=== PATIENT | male | born 1965 | race Caucasian/White ===

== ENCOUNTER 2024-07-07 21:13 | Emergency (ER) | payer OTHER, SELFPAY ==
[2024-07-07 21:18] VITALS: BP 159/87
--- NOTE | 2024-07-07 21:49 | ED.GENMED ---
History of Present Illness
General
Chief Complaint: Fall
Time Seen by Provider: 07/07/24 21:33
History of Present Illness
History of Present Illness:
58-year-old male presents the emergency department for evaluation of multiple superficial abrasions to the back as well as the feet. He states he fell on a step to escalator earlier today, notes that he took many septa transfers from [place]
to get to [place] and as a result has blisters on his feet from walking. He arrives with several bags of luggage, states to me he was hoping to use the oral pool at the local [facility] 'as this would help prevent infections in my back' but he was
unsuccessful in this [facility]. He initially presented to [facility] for outpatient psychiatry referral as he feels he needs medications, was last medicated after hospital stay [facility] last year. Denies any suicidal or
homicidal ideation. Very tangential speech patterns
Past History
Past History
ED Past Medical History: HTN, Hypercholesterolemia, NIDDM, Psychiatric (Bipolar disorder) and Other (Asthma, diabetes)
ED Past Surgical History: None
Patient has exhibited threatening behavior?: No
Social History
Tobacco: Smoker
Alcohol: None (Sober since 2011)
Drug: Marijuana (Sober since 2011)
Personal: Single
Living: alone
Employment: Employed
Family History
Family History: Hypertension and Other (Mother with leukemia. Father with COPD hypertension and alcoholism); Negative Diabetes, Early CAD, Asthma or Cancer
Review of Systems
Review of Systems
Allergies reviewed?: Yes
All Other Systems: ROS reviewed and negative except as documented in HPI and ROS
Phy Exam
Physical Exam
Physical Exam:
GEN: Well appearing, NAD, WDWN
HEENT: Oral mucosa moist, no scleral icterus
Cardiac: Regular rate
Lung: No respiratory distress, no tachypnea
MSK: No gross deformity or injuries
Skin: Good color, no pallor or jaundice, numerous superficial abrasions across the back with no bleeding. Numerous develop blisters to bilateral feet with no signs of skin infection
Neuro: AO x3, moves all extremities freely
Psych: Rambling and tangential
Course
Orders/Labs/Results
Orders:
Orders
07/07/24 22:07
Bacitracin/Polymyxin B [Polysporin Ointment] See Dose Instructions TOPICAL NOW STA
07/07/24 22:21
Acetaminophen [Tylenol] 650 mg .ROUTE .STK-MED ONE
07/07/24 22:22
Acetaminophen [Tylenol] 650 mg PO NOW STA
Vital Signs
Initial and Last Documented VS:
Initial Vital Signs
Temp Pulse Resp BP Pulse Ox
99.1 F 70 20 159/87 97
07/07/24 21:18 07/07/24 21:18 07/07/24 21:18 07/07/24 21:18 07/07/24 21:18
Last Documented Vital Signs
Temp Pulse Resp BP Pulse Ox
99.1 F 70 20 159/87 97
07/07/24 21:18 07/07/24 21:18 07/07/24 21:18 07/07/24 21:18 07/07/24 21:18
MDM/Problems Addressed
MDM/Problems Addressed:
Discussed wound care with the patient. He is homeless and plans to seek crisis evaluation at [facility] after medical discharge. No indication for 302 and he does not desire inpatient hospitalization. Medically cleared for discharge
*Critical Care Note
Total Time (30-74mins, 75-104mins- exclusive of procedures): Not Applicable
ED Attending Note
-
Portions of this chart may have been created with voice recognition software.� Occasional wrong word or��sound alike� substitutions may have occurred due to the inherent limitations of voice recognition software.
Discharge Plan
Departure
Patient Disposition: Home (Routine Discharge)
Date of Disposition: 07/07/24
Time of Disposition: 21:49
Patient with high blood pressure during this ER visit?: No
Discharge Problem:
Abrasion of skin, Homeless
Instructions: Wound Care (DC), Skin Abrasions (DC)
Prescriptions:
No Action
No Current Medications
0
Interventions
Interventions:
*Risk Screen - Suicide Last Done: 07/07/24 21:18
*General Assessment Last Done: 07/07/24 21:18
*Neglect/Abuse Screening Last Done: 07/07/24 21:18
ED- Fall Risk Assessment Last Done: 07/07/24 21:18
*ED COVID-19 Vaccine History Last Done: 07/07/24 21:18
*Nursing Disposition Last Done: 07/07/24 22:29
ED-Musculoskeletal Assessment Last Done: 07/07/24 21:52
ED- Neurological Assessment Last Done: 07/07/24 21:52
ED-Skin Assessment Last Done: 07/07/24 21:52
Discharge Date and Time
Discharge Date/Time: 07/07/24 22:29
Print Language: MOROCCAN
[2024-07-07] MEDS: TYLENOL 650 MG PO (22:22)
[2024-07-07] MEDS: POLYSPORIN OINTMENT 1 APPLIC TOPICAL (22:23)
== END 2024-07-07 22:29 | disposition home or self-care (01) ==
LOC: EMR 21:13
PROVIDERS: EMERGENCY PHYSICIAN Emergency Medicine; FAMILY PHYSICIAN Family Medicine
DX: S20.419A Abrasion of unspecified back wall of thorax, initial encounter (principal); S90.822A Blister (nonthermal), left foot, initial encounter; S90.821A Blister (nonthermal), right foot, initial encounter; W10.0XXA Fall (on)(from) escalator, initial encounter; Z59.00 Homelessness unspecified; I10 Essential (primary) hypertension; E11.9 Type 2 diabetes mellitus without complications; E78.00 Pure hypercholesterolemia, unspecified; F31.9 Bipolar disorder, unspecified; J45.909 Unspecified asthma, uncomplicated; F17.200 Nicotine dependence, unspecified, uncomplicated
CPT/HCPCS: 99281

== ENCOUNTER 2024-07-08 02:47 | Emergency (ER) | payer OTHER, SELFPAY ==
[2024-07-08 03:05] VITALS: BP 130/88
--- NOTE | 2024-07-08 04:34 | ED.GENMED ---
History of Present Illness
General
Chief Complaint: Dehydration Symptoms
Source: patient
Time Seen by Provider: 07/08/24 04:34
Nursing documentation reviewed up to this point in time: agreed with
History of Present Illness
History of Present Illness:
58-year-old male presents the emergency department for signs and symptoms of dehydration. Patient was seen in the emergency department earlier today after falling down a step on the escalator. He did suffer some abrasions and had some blisters on
his feet. He was treated at that time and discharged. Patient then went to [facility] looking for an outpatient psychiatry referral. Patient was at [facility] recently and discharged. Was seen by [facility] and
discharged. Patient denies suicidal or homicidal ideation, intent or plan. Patient is homeless.
Past History
Past History
ED Past Medical History: HTN, Hypercholesterolemia, NIDDM, Psychiatric (Bipolar disorder) and Other (Asthma, diabetes)
ED Past Surgical History: None
Patient has exhibited threatening behavior?: No
Social History
Tobacco: Smoker
Alcohol: None (Sober since 2011)
Drug: Marijuana (Sober since 2011)
Personal: Single
Living: alone
Employment: Employed
Family History
Family History: Hypertension and Other (Mother with leukemia. Father with COPD hypertension and alcoholism); Negative Diabetes, Early CAD, Asthma or Cancer
Review of Systems
Review of Systems
Allergies reviewed?: Yes
All Other Systems: ROS reviewed and negative except as documented in HPI and ROS
Constitutional: Reports no symptoms
EENT: Reports no symptoms
Respiratory: Reports no symptoms
Cardiac: Reports no symptoms
ABD/GI: Reports no symptoms
: Reports no symptoms
Musculoskeletal: Reports no symptoms
Skin: Reports no symptoms
Neurological: Reports no symptoms
Endocrine: Reports no symptoms
Hematologic/Lymphatic: Reports no symptoms
Psychiatric: Reports depression and anxiety; Denies suicidal
Phy Exam
General Physical Exam
General Presentation: well appearing and no apparent distress
General age: appears stated age
General Skin: warm and dry
General Habitus: normal
General Mental: alert
Cardiovascular Exam
Cardiovascular Exam: regular rate/rhythm and no edema
Musculoskeletal Exam
Musculoskeletal Exam: full ROM
Skin Exam
Skin Exam: normal color, warm/dry and other (Wounds to feet which appear to be appropriately dressed)
Psychiatric Exam
Psychiatric Exam: agitated
Course
Orders/Labs/Results
Orders:
Orders
07/08/24 04:34
Ibuprofen [Motrin] 600 mg PO NOW STA
Vital Signs
Initial and Last Documented VS:
Initial Vital Signs
Pulse Resp BP Pulse Ox
75 18 130/88 96
07/08/24 03:05 07/08/24 03:05 07/08/24 03:05 07/08/24 03:05
Last Documented Vital Signs
Pulse Resp BP Pulse Ox
75 18 157/97 96
07/08/24 03:05 07/08/24 03:05 07/08/24 04:56 07/08/24 03:05
*Critical Care Note
Total Time (30-74mins, 75-104mins- exclusive of procedures): Not Applicable
ED Attending Note
-
Portions of this chart may have been created with voice recognition software.� Occasional wrong word or��sound alike� substitutions may have occurred due to the inherent limitations of voice recognition software.
Discharge Plan
Departure
Patient Disposition: Home (Routine Discharge)
Date of Disposition: 07/08/24
Time of Disposition: 04:38
Patient with high blood pressure during this ER visit?: Yes
Condition: Good
Discharge Problem:
Acute dehydration, Homeless
Instructions: Dehydration, Adult (DC), BLOOD PRESSURE
Prescriptions:
No Action
No Current Medications
0
Referrals:
Jesus Johnson MD [Family Provider] -
[facility] [Active] - As needed
Activity Restrictions/Additional Instructions:
It was a pleasure meeting you and taking part in your care. We hope for your continued healing and wellness.
Please read discharge instructions in their entirety. However, they are for general education and may not describe your exact diagnosis at discharge. Information on your ER visit and medical conditions were discussed with you along with appropriate
follow up information...
If indicated, please take your medications as instructed and indicated on discharge paperwork.
Please schedule a follow up appointment as directed. Call to schedule an appointment
Please return to the emergency department with ANY change in, persisting, or worsening of symptoms. If any of your symptoms do not improve, or persist, or become more severe within 6-12 hours, please return to the emergency department for further
care.
Please return to the emergency department if you develop a headache, neck pain/stiffness, fever greater than 100.4F, chest pain, shortness of breath, persistent nausea, vomiting, slurred speech, difficulty walking, numbness/tingling, weakness, signs
of infection or any other symptoms that are worrisome to you.
If you have any questions or concerns please do not hesitate to call the Hospital at
Interventions
Interventions:
*Risk Screen - Suicide Last Done: 07/08/24 04:54
*General Assessment Last Done: 07/08/24 04:54
*Neglect/Abuse Screening Last Done: 07/08/24 04:54
ED- Fall Risk Assessment Last Done: 07/08/24 04:54
*ED COVID-19 Vaccine History Last Done: 07/08/24 04:54
*Nursing Disposition Last Done: 07/08/24 04:54
ED- Cardiac Assessment Last Done: 07/08/24 04:54
ED- Neurological Assessment Last Done: 07/08/24 04:54
ED- Pulmonary Assessment Last Done: 07/08/24 04:54
Discharge Date and Time
Discharge Date/Time: 07/08/24 04:56
Print Language: DANISH
[2024-07-08] MEDS: MOTRIN 600 MG PO (04:37)
[2024-07-08 04:56] VITALS: BP 157/97
== END 2024-07-08 04:56 | disposition home or self-care (01) ==
LOC: EMR 02:47
PROVIDERS: EMERGENCY PHYSICIAN Student in an Organized Health Care Education/Training Program; FAMILY PHYSICIAN Family Medicine
DX: E86.0 Dehydration (principal); Z59.00 Homelessness unspecified; F17.200 Nicotine dependence, unspecified, uncomplicated; I10 Essential (primary) hypertension
CPT/HCPCS: 99283

== ENCOUNTER 2024-07-13 01:30 | Emergency (ER) | payer OTHER, SELFPAY ==
[2024-07-13 01:37] VITALS: BP 152/87
--- NOTE | 2024-07-13 02:13 | ED.GENMED ---
History of Present Illness
General
Chief Complaint: Musculo-Skeletal Complaint
Source: patient
Exam Limitations: none
Time Seen by Provider: 07/13/24 01:58
Nursing documentation reviewed up to this point in time: agreed with
History of Present Illness
History of Present Illness:
58-year-old male presents emergency department complaining of sore legs from walking, and blisters on his feet. He is worried about his blood sugar. He states he has not had anything to eat today. He ambulates into the emergency department
without difficulty.
Past History
Past History
ED Past Medical History: HTN, Hypercholesterolemia, NIDDM, Psychiatric (Bipolar disorder) and Other (Asthma, diabetes)
ED Past Surgical History: None
Patient has exhibited threatening behavior?: No
Social History
Tobacco: Smoker
Alcohol: None (Sober since 2011)
Drug: Marijuana (Sober since 2011)
Personal: Single
Living: alone
Employment: Employed
Family History
Family History: Hypertension and Other (Mother with leukemia. Father with COPD hypertension and alcoholism); Negative Diabetes, Early CAD, Asthma or Cancer
Review of Systems
Review of Systems
Allergies reviewed?: Yes
All Other Systems: Not applicable
Constitutional: Reports no symptoms
EENT: Reports no symptoms
Respiratory: Reports no symptoms
Cardiac: Reports no symptoms
ABD/GI: Reports no symptoms
: Reports no symptoms
Musculoskeletal: Reports muscle pain
Skin: Reports no symptoms
Neurological: Reports no symptoms
Endocrine: Reports no symptoms
Hematologic/Lymphatic: Reports no symptoms
Psychiatric: Reports no symptoms
Phy Exam
Physical Exam
Physical Exam:
Physical Exam
General: no apparent distress, not acutely ill
Neck: supple. no meningeal signs. normal posterior pharynx
Heart: s1/s2 regular rate and rhythm, no murmur. equal radial
pulses.
HEENT: Pupils equal round reactive to light, EOMI
Lungs: no acute respiratory distress. clear bilaterally
Abdomen: normal bowel sounds. not tender. no CVAT
Neuro: alert and oriented. no focal neurological deficits cranial nerves II through XII intact
Skin: no rash, healing tears on bilateral feet
Psychiatric: well kept. interactive and cooperative
Extremities: no edema. no calf tenderness. negative homans. good distal pulses
Course
Orders/Labs/Results
Orders:
Orders
07/13/24 02:10
Bedside Glucose- Treatment ONCE
Ibuprofen [Motrin] 600 mg PO NOW STA
Vital Signs
Initial and Last Documented VS:
Initial Vital Signs
Temp Pulse Resp BP Pulse Ox
98.2 F 65 16 152/87 96
07/13/24 01:37 07/13/24 01:37 07/13/24 01:37 07/13/24 01:37 07/13/24 01:37
Last Documented Vital Signs
Temp Pulse Resp BP Pulse Ox
98.2 F 65 16 152/87 96
07/13/24 01:37 07/13/24 01:37 07/13/24 01:37 07/13/24 01:37 07/13/24 01:37
MDM/Problems Addressed
Differential Diagnosis Includes:
Hyperglycemia, dehydration, bipolar
MDM/Problems Addressed:
58-year-old male with muscle soreness, likely from exertion. No signs of fracture or muscle tear. Do not suspect rhabdomyolysis. Patient tolerates food and oral fluids without difficulty. Stable for discharge. No SI or HI.
Chronic conditions affecting care: DM and Asthma
*Pulse Oximetry
Patient hypoxic: no
*Critical Care Note
Total Time (30-74mins, 75-104mins- exclusive of procedures): Not Applicable
Data Reviewed
Further Testing Considered But Not Given:
Labs not indicated
Patient Management
Social determinants of health affecting care: Living situation, Financial situation and Poor social support
Escalation/DeEscalation of care consider admission/obs:
Admit not indicated
ED Attending Note
-
Portions of this chart may have been created with voice recognition software.� Occasional wrong word or��sound alike� substitutions may have occurred due to the inherent limitations of voice recognition software.
Discharge Plan
Departure
Patient Disposition: Home (Routine Discharge)
Date of Disposition: 07/13/24
Time of Disposition: 02:17
Patient with high blood pressure during this ER visit?: Yes
Condition: Good
Discharge Problem:
Myalgia
Instructions: Muscle and Bone Pain (DC)
Prescriptions:
No Action
No Current Medications
0
Activity Restrictions/Additional Instructions:
Return for any concerns. Follow-up with primary care.
Interventions
Interventions:
*General Assessment Last Done: 07/13/24 01:44
*ED COVID-19 Vaccine History Last Done: 07/13/24 01:44
Discharge Date and Time
Print Language: FRISIAN
[2024-07-13 02:19] LABS: Glucose - Point of Care 122 mg/dl (70-99)
[2024-07-13] MEDS: MOTRIN 600 MG PO (02:19)
== END 2024-07-13 02:35 | disposition home or self-care (01) ==
LOC: EMR 01:30
PROVIDERS: EMERGENCY PHYSICIAN Emergency Medicine
DX: M79.10 Myalgia, unspecified site (principal); S90.822A Blister (nonthermal), left foot, initial encounter; S90.821A Blister (nonthermal), right foot, initial encounter; X58.XXXA Exposure to other specified factors, initial encounter; I10 Essential (primary) hypertension; E78.00 Pure hypercholesterolemia, unspecified; E11.9 Type 2 diabetes mellitus without complications; J45.909 Unspecified asthma, uncomplicated; F31.9 Bipolar disorder, unspecified; F17.200 Nicotine dependence, unspecified, uncomplicated; Z82.49 Family history of ischemic heart disease and other diseases of the circulatory system
CPT/HCPCS: 99282; 82962